=== PATIENT | female | born 1930 | race Caucasian/White ===

== ENCOUNTER → 2016-08-11 | Outpatient (CLI) | payer OTHER ==
--- NOTE | 2016-08-11 19:33 | DX ---
Right Knee 5 Views History: Pain after fall 2 days ago. Comparison: Right knee January 15, 2016. 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 No definite fracture is identified. Alignment is normal. A trace joint effusion is suspected. Impression: No acute osseous findings. If symptoms persist and clinical suspicion warrants, consider MRI.
== END ==
LOC: CIMAGING 10:53
PROVIDERS: ATTEND Internal Medicine
DX: M25.561 Pain in right knee (principal)
CPT/HCPCS: 73564-PO

== ENCOUNTER 2016-08-15 13:37 | Inpatient (IN) | payer OTHER ==
--- NOTE | 2016-08-15 13:49 | CPEKG ---
Heart Rate: 72 RR Interval: 833 P-R Interval: 192 QRSD Interval: 142 QT Interval: 400 QTC Interval: 438 P [place]: 37 QRS [place]: -4 T Wave [place]: -13 EKG Severity - ABNORMAL ECG - EKG Impression: SINUS RHYTHM EKG Impression: RIGHT BUNDLE BRANCH BLOCK Electronically Signed By: Mc High 15-Aug-2016 14:37:34
[2016-08-15] MEDS ORDERED: ASPIRIN 81 MG CHEWABLE TAB ONE (13:50)
[2016-08-15 14:12] LABS: % IMMATURE GRANULYOCYTES 0.5 % (0.0-1.1); ABSOLUTE IMMATURE GRANULOCYTES 0.04 10^3/uL (0.00-0.10); ADD DIFF? NO; ADD MORPH? NO; ADD SCAN? NO; ATYPICAL LYMPHOCYTE FLAG 30 (0-99); FRAGMENT RBC FLAG 0 (0-99); HEMATOCRIT 39.9 % (38.0-47.0); HEMOGLOBIN 13.6 g/dL (12.6-16.3); LEFT SHIFT FLG 0 (0-99); LIPEMIA HEMOLYSIS FLAG 90 (0-99); MEAN CELL HEMOGLOBIN 36.9 pg (27.9-34.1); MEAN CELL HEMOGLOBIN CONCENTR. 34.1 g/dL (32.4-36.7); MEAN CELL VOLUME 108.1 fL (81.5-99.8); MEAN PLATELET VOLUME 9.1 fL (8.7-11.7); PLATELET CLUMPS FLAG 20 (0-99); PLATELET COUNT 245 10^3/uL (150-400); RED BLOOD CELL COUNT 3.69 10^6/uL (4.18-5.33); RED CELL DISTRIBUTION WIDTH 11.3 % (11.5-15.2)
--- NOTE | 2016-08-15 14:23 | UCPHY ---
H & P Patient Type: Established Chief Complaint Nursing Narrative: cp since 9am. fatigue and weak all day. nml appetite. SOb worse w exertion. Time Seen by Provider: 08/15/16 14:11 HPI/ROS: This patient presents with a chief complaint of chest pressure which began this morning. Yesterday she fell fatigue and done well but had no chest pressure. She admits to some shortness of breath but no nausea or diaphoresis. She has had a mild cough. She has chronic low back pain but earlier today had some upper back pain as well. She denies any radiation of the pain to her extremities or neck. There are no palliative or provocative features and pain is not related to movement, breathing or swallowing. She is aware of pain and swelling in her lower extremities which is unchanged since the chest pain began. She has had previous episodes of this in the past and was seen by last repairer but is it is not clear if it was cardiac related related. REVIEW OF SYSTEMS: Constitutional: Malaise, no fever Eyes: No complaints ENT: Denies nasal congestion, sore throat or ear pain Respiratory: Cough, some shortness of breath Cardiac: See above Gastrointestinal: Denies nausea, vomiting, abdominal pain Genitourinary: Denies Musculoskeletal: Chronic back pain unchanged, upper back pain Skin: No rash Neurological: No headache Source: Patient, RN notes reviewed, Old records - Personal History Current Tetanus Diphtheria and Acellular Pertussis (TDAP): Yes - Medical/Surgical History Hx Asthma: No Hx Chronic Respiratory Disease: No Hx Diabetes: No Hx Cardiac Disease: No Hx Renal Disease: No Hx Cirrhosis: No Hx Alcoholism: No Hx HIV/AIDS: No Hx Splenectomy or Spleen Trauma: No Other PMH: thyroid. macular degeneration. hysterectomy - Family History Significant Family History: No pertinent family hx - Social History Smoking Status: Never smoked - Physical Exam Exam: GENERAL: Well-appearing, well-nourished and in no acute distress. HEAD: Atraumatic, normocephalic. EYES: Pupils equal round and reactive to light, extraocular movements intact, sclera anicteric, conjunctiva are normal. ENT: nares patent, oropharynx clear without exudates. Moist mucous membranes. NECK: Normal range of motion, supple without lymphadenopathy or JVD. No tenderness LUNGS: There are diffuse rales present. No wheezes or rhonchi. i. HEART: Regular rate and rhythm without murmurs, rubs or gallops. There is diffuse mild chest wall tenderness ABDOMEN: Soft, diffusely tender, normoactive bowel sounds. No guarding, no rebound. No masses appreciated. EXTREMITIES: Normal range of motion, no pitting or edema. No clubbing or cyanosis. There is diffuse bilateral lower extremity tenderness both anteriorly and posteriorly I NEUROLOGICAL: Cranial nerves II through XII grossly intact. Normal speech, PSYCH: Normal mood, normal affect. SKIN: Warm, dry, normal turgor, no visible rashes or lesions. Back: There is diffuse tenderness of both the upper and lower back. No specific CVA tenderness however. Constitutional: Initial Vital Signs Temperature (C) 36.4 C 08/15/16 13:54 Heart Rate 73 08/15/16 13:54 Respiratory Rate 18 08/15/16 13:54 Blood Pressure 131/69 H 08/15/16 13:54 O2 Sat (%) 96 08/15/16 13:54 O2 Delivery Mode Room Air Allergies/Adverse Reactions: erythromycin base [Erythromycin Base] Allergy (Verified 08/15/16 13:59) Penicillins Allergy (Verified 08/15/16 13:59) Home Medications: Medication Instructions Recorded Levothyroxine [Synthroid 100 mcg 100 mcg PO BONILLA@06 01/07/16 (*)] Eye Drops Dispenser 08/15/16 Medical Decision Making - Diagnostics EKG Interpretation: An EKG shows a right bundle branch block and is essentially unchanged from an EKG obtained in January of 2016. Imaging: The chest x-ray is unchanged from 1 obtained nearly 4 years ago. There is mild cardiomegaly but no obvious congestive heart failure. ED Course/Re-evaluation: The patient was monitored throughout her stay in the department. She remained stable and in good condition and unchanged. Because of the unclear source of this patient's pain is been elected to admit her. The hospitalist has been contacted and has agreed to take the patient in transfer. Differential Diagnosis: Because I have no specific diagnosis for this patient I feel that she requires admission for further evaluation and testing. I think it is highly unlikely that she has pulmonary embolus, pneumonia or congestive heart failure but my chief concern is that this represents coronary artery syndrome. There is no evidence of aortic dissection. - Data Points Laboratory Results: Laboratory Results 08/15/16 14:07 08/15/16 13:55 08/15/16 08/15/16 14:07 13:55 WBC 8.24 10^3/uL (3.80-9.50) RBC 3.69 L 10^6/uL (4.18-5.33) Hgb 13.6 g/dL (12.6-16.3) Hct 39.9 % (38.0-47.0) MCV 108.1 H fL (81.5-99.8) MCH 36.9 H pg (27.9-34.1) MCHC 34.1 g/dL (32.4-36.7) RDW 11.3 L % (11.5-15.2) Plt Count 245 10^3/uL (150-400) MPV 9.1 fL (8.7-11.7) Neut % (Auto) 66.7 % (39.3-74.2) Lymph % (Auto) 18.4 % (15.0-45.0) [place] % (Auto) 9.2 % (4.5-13.0) Eos % (Auto) 4.2 % (0.6-7.6) Baso % (Auto) 1.0 % (0.3-1.7) Nucleat RBC Rel Count 0.0 % (0.0-0.2) Absolute Neuts (auto) 5.49 10^3/uL (1.70-6.50) Absolute Lymphs (auto) 1.52 10^3/uL (1.00-3.00) Absolute Monos (auto) 0.76 10^3/uL (0.30-0.80) Absolute Eos (auto) 0.35 10^3/uL (0.03-0.40) Absolute Basos (auto) 0.08 10^3/uL (0.02-0.10) Absolute Nucleated RBC 0.00 10^3/uL (0-0.01) Immature Gran % 0.5 % (0.0-1.1) Immature Gran # 0.04 10^3/uL (0.00-0.10) Sodium 135 mEq/L (134-144) Potassium 4.3 mEq/L (3.5-5.2) Chloride 99 mEq/L (97-110) Carbon Dioxide 27 mEq/l (22-31) Anion Gap 9 mEq/L (8-16) BUN 21 mg/dL (7-23) Creatinine 0.8 mg/dL (0.6-1.0) Estimated GFR > 60 Glucose 132 H mg/dL (70-100) Calcium 8.9 mg/dL (8.5-10.4) Total Bilirubin 0.4 mg/dL (0.1-1.4) AST 19 IU/L (14-46) ALT 22 IU/L (9-52) Alkaline Phosphatase 66 IU/L (38-126) Troponin I < 0.012 ng/mL (0-0.034) Total Protein 6.7 g/dL (6.3-8.2) Albumin 3.6 g/dL (3.5-5.0) Departure - Departure Disposition: [facility] Inpatient Acute Clinical Impression: Chest pain Qualifiers: Chest pain type: precordial pain Qualifier Code: (R07.2) Precordial pain Condition: Good Referrals: Cameron Mcarthur MD [Primary Care Provider] - As per Instructions - PQRS PQRS Measurement: Not applicable
[2016-08-15 14:28] LABS: ALANINE AMINOTRANSFERASE 22 IU/L (9-52); ALBUMIN 3.6 g/dL (3.5-5.0); ALKALINE PHOSPHATASE 66 IU/L (38-126); ANION GAP 9 mEq/L (8-16); ASPARTATE AMINOTRANSFERASE 19 IU/L (14-46); BILIRUBIN,TOTAL 0.4 mg/dL (0.1-1.4); CALCIUM 8.9 mg/dL (8.5-10.4); CARBON DIOXIDE 27 mEq/l (22-31); CHLORIDE 99 mEq/L (97-110); CREATININE 0.8 mg/dL (0.6-1.0); GLOMERULAR FILTRATION RATE > 60; GLUCOSE 132 mg/dL (70-100); POTASSIUM 4.3 mEq/L (3.5-5.2); SODIUM 135 mEq/L (134-144); TOTAL PROTEIN 6.7 g/dL (6.3-8.2)
[2016-08-15 14:36] LABS: TROPONIN I < 0.012 ng/mL (0-0.034)
--- NOTE | 2016-08-15 14:45 | DX ---
PA and lateral chest - August 15, 2016 History: Chest pain. Comparison: PA and lateral chest January 08, 2013. Findings: Diffuse interstitial prominence, most noticeable in the lateral right upper lobe and left l claudia base has not appreciably changed since 2012. There is no definite focal consolidation. There is n o pneumothorax or pleural effusion. Heart size is mildly enlarged, unchanged. The bones are stable. Impression: Stable interstitial prominence likely related to interstitial lung disease with no acute findings.
[2016-08-15] MEDS ORDERED: ONDANSETRON DISINTEGRATING 4 MG TAB PO PRN (18:42)
[2016-08-15] MEDS ORDERED: ACETAMINOPHEN 325 MG TAB PO PRN (18:42)
--- NOTE | 2016-08-15 22:56 | PDEACUHP ---
History and Physical - Chief Complaint chest pain - History of Present Illness 85 yo F with PMH of hypothyroidism presenting with weakness and chest pain. She notes that she feels weak with any exertion, which is a change from her usual baseline. She has also had chest discomfort across her anterior chest. She states the pain is dull and not severe, but is new and not like anything she has had before. She has felt so weak, that with even minimal exertion she will need to sit down. This has gone on for about 1 week on and off. Other than exertion, she does not associate it with anything else. She has no swelling or pain in her legs, she has no cough, no fever or chills, no shortness of breath. History Information - Allergies/Home Medication List Allergies/Adverse Reactions: erythromycin base [Erythromycin Base] Allergy (Verified 08/15/16 19:26) Penicillins Allergy (Verified 08/15/16 19:26) Home Medications: Albuterol Hfa Anes Only [Proair Hfa Icu (*)] 1 puffs IH BID 08/15/16 [Last Taken 08/14/16] Brimonidine 0.15% [ALPHAGAN P 0.15% (RX)] 1 drops EACHEYE BID 08/15/16 [Last Taken 08/15/16] Levothyroxine [Synthroid 25 mcg (*)] 100 mcg PO BONILLA 08/15/16 [Last Taken 08/14/16 ] Levothyroxine [Synthroid 75 mcg (*)] 75 mcg PO MOTUWETHFRSA 08/15/16 [Last Taken 08/15/16] Timolol 0.5% [TIMOPTIC 0.5% (*)] 1 drops RTEYE BID 08/15/16 [Last Taken 08/15/16 ] I have personally reviewed and updated: family history, medical history, social history, surgical history - Past Medical History Additional medical history: hypothyroidism. macular degeneration. varicose veins - Surgical History Reports: no pertinent surgical hx - Family History Positive for: non-pertinent - Social History Smoking Status: Never smoked Alcohol Use: None Drug Use: None Additional social history: , 3 children Review of Systems ROS: 10pt was reviewed & negative except for what was stated in HPI & below Physical Exam Temp Pulse Resp BP Pulse Ox 36.3 C 68 22 H 114/57 L 93 08/15/16 19:57 01/23/17 19:57 08/15/16 19:57 08/15/16 19:57 08/15/16 19:57 Constitutional: no apparent distress, appears nourished Eyes: PERRL Ears, Nose, Mouth, Throat: moist mucous membranes Cardiovascular: regular rate and rhythym, no murmur, rub, or gallop, No edema Respiratory: no respiratory distress, no rales or rhonchi Gastrointestinal: normoactive bowel sounds, soft, non-tender abdomen Genitourinary: no bladder fullness Skin: warm, normal color Musculoskeletal: full muscle strength, no muscle tenderness Neurologic: AAOx3, sensation intact bilaterally Psychiatric: interacting appropriately, not anxious, not encephalopathic Lab Data & Imaging Review 08/15/16 14:07 08/15/16 13:55 WBC 8.24 10^3/uL (3.80-9.50) 08/15/16 14:07 RBC 3.69 10^6/uL (4.18-5.33) L 08/15/16 14:07 Hgb 13.6 g/dL (12.6-16.3) 08/15/16 14:07 Hct 39.9 % (38.0-47.0) 08/15/16 14:07 MCV 108.1 fL (81.5-99.8) H 08/15/16 14:07 MCH 36.9 pg (27.9-34.1) H 08/15/16 14:07 MCHC 34.1 g/dL (32.4-36.7) 08/15/16 14:07 RDW 11.3 % (11.5-15.2) L 08/15/16 14:07 Plt Count 245 10^3/uL (150-400) 08/15/16 14:07 MPV 9.1 fL (8.7-11.7) 08/15/16 14:07 Neut % (Auto) 66.7 % (39.3-74.2) 08/15/16 14:07 Lymph % (Auto) 18.4 % (15.0-45.0) 08/15/16 14:07 [place] % (Auto) 9.2 % (4.5-13.0) 08/15/16 14:07 Eos % (Auto) 4.2 % (0.6-7.6) 08/15/16 14:07 Baso % (Auto) 1.0 % (0.3-1.7) 08/15/16 14:07 Nucleat RBC Rel Count 0.0 % (0.0-0.2) 08/15/16 14:07 Absolute Neuts (auto) 5.49 10^3/uL (1.70-6.50) 08/15/16 14:07 Absolute Lymphs (auto) 1.52 10^3/uL (1.00-3.00) 08/15/16 14:07 Absolute Monos (auto) 0.76 10^3/uL (0.30-0.80) 08/15/16 14:07 Absolute Eos (auto) 0.35 10^3/uL (0.03-0.40) 08/15/16 14:07 Absolute Basos (auto) 0.08 10^3/uL (0.02-0.10) 08/15/16 14:07 Absolute Nucleated RBC 0.00 10^3/uL (0-0.01) 08/15/16 14:07 Immature Gran % 0.5 % (0.0-1.1) 08/15/16 14:07 Immature Gran # 0.04 10^3/uL (0.00-0.10) 08/15/16 14:07 Sodium 135 mEq/L (134-144) 08/15/16 13:55 Potassium 4.3 mEq/L (3.5-5.2) 08/15/16 13:55 Chloride 99 mEq/L (97-110) 08/15/16 13:55 Carbon Dioxide 27 mEq/l (22-31) 08/15/16 13:55 Anion Gap 9 mEq/L (8-16) 08/15/16 13:55 BUN 21 mg/dL (7-23) 08/15/16 13:55 Creatinine 0.8 mg/dL (0.6-1.0) 08/15/16 13:55 Estimated GFR > 60 08/15/16 13:55 Glucose 132 mg/dL (70-100) H 08/15/16 13:55 Calcium 8.9 mg/dL (8.5-10.4) 01/23/17 13:55 Total Bilirubin 0.4 mg/dL (0.1-1.4) 08/15/16 13:55 AST 19 IU/L (14-46) 08/15/16 13:55 ALT 22 IU/L (9-52) 08/15/16 13:55 Alkaline Phosphatase 66 IU/L (38-126) 08/15/16 13:55 Troponin I < 0.012 ng/mL (0-0.034) 08/15/16 13:55 Total Protein 6.7 g/dL (6.3-8.2) 08/15/16 13:55 Albumin 3.6 g/dL (3.5-5.0) 08/15/16 13:55 Visualized and Interpreted Chest x-ray results: Yes Chest X-Ray results: no infiltrate Visualized and Interpreted EKG results: Yes EKG Interpretation: Positive for: normal sinsus rhythm, right bundle branch block Assessment & Plan Assessment: 85 yo F with no significant PMH presenting with fatigue with exertion and chest pain # chest pain: concerning in that it is exertional and associated with fatigue on exertion. Initial w/u non diagnostic, ECG with old RBBB and no acute ischemic changes. Will monitor on tele, trend troponins and obtain stress test in am. # exertional weakness: as above, concerning for cardiac etiology, will also check tsh # macrocytosis: has been present quite some time, again checking tsh, b12 has been wnl in the recent past, not a drinker per her report. Unclear if this could be related to her presenting issus given how long it has been present and that otherwise laboratory studies relatively normal # hypothyroid: checking tsh in am # dispo: observation status Patient new to my care. Old records reviewed and summarized as above. Care plan reviewed with ER doctor including plans for ACS rule out.
[2016-08-16] MEDS: TIMOLOL 0.5% 15 ML OPHT.BTL RTEYE SCH ×3 (00:26→21:19)
[2016-08-16 03:58] LABS: CHOLESTEROL 181 mg/dL (140-220); CHOLESTEROL/HDL RATIO 4.41 RATIO (1.00-4.44); HIGH DENSITY LIPOPROTEIN 41 mg/dL (40-85); LDL/HDL RATIO 2.39 RATIO (1.00-3.22); LOW DENSITY LIPOPROTEIN 98 mg/dL (80-100); NON-HIGH DENSITY LIPOPROTEIN 140 mg/dL (90-129); TRIGLYCERIDE 214 mg/dL (35-135); VERY LOW DENSITY LIPOPROTEINS 42 mg/dL (8-25)
[2016-08-16 04:10] LABS: TROPONIN I < 0.012 ng/mL (0-0.034)
[2016-08-16] MEDS: LEVOTHYROXINE 75 MCG TAB PO SCH (08:02)
[2016-08-16] MEDS: ALBUTEROL 60 PUFFS/8 GM MDI IH SCH ×2 (08:14→21:26)
[2016-08-16] MEDS: ASPIRIN 325 MG TAB PO SCH (09:00)
[2016-08-16] MEDS: BRIMONIDINE 0.15% 5 ML OPHT.BTL EACHEYE SCH ×2 (11:10→21:20)
[2016-08-16] MEDS ORDERED: REGADENOSON 0.4 MG/5 ML SYR IVP ONE (12:09)
--- NOTE | 2016-08-16 13:04 | CPR ---
[f rep st] NONINVASIVE CARDIAC PROCEDURE REPORT Lexiscan injection of Lexiscan MPI study. INDICATION FOR PROCEDURE: Chest pressure, abnormal EKG with right bundle branch block. PRE: After obtaining informed consent, ensuring the patient's n.p.o. status of caffeine for greater than 12 hours, the patient was placed on electrocardiogram. Initial EKG showed sinus rhythm with rig ht bundle branch block. Patient denies any chest pain, or shortness of breath, or symptoms suggestin g ischemia. Initial blood pressure 110/60, saturation 92% on room air. INJECTION: Patient was given Lexiscan slow IV push followed by nuclear isotope. Within 1-2 minutes, patient reporting some shortness of breath with injection, no significant EKG changes, the patient w as given caffeinated beverage. Within 5 minutes, patient reports symptoms all subsided. Blood press ure remained stable, again no change in electrocardiogram, heart rate 84 beats per minute. Saturatio n 92% on room air. Patient's vital signs are stable. She will finish post stress MPI imaging in [facility] at this time. IMPRESSION: An 85-year-old female, admitted to the hospital for chest pressure, with noted right bun dle branch block, undergoing Lexiscan MPI to evaluate for cardiac ischemia, reporting mild shortness of breath, with some flushing sensation within injection 1 minute, and all symptoms subsided with caf feine in time, asymptomatic after 5 minutes, vital signs stable, no significant EKG changes with Shantal scan injection. /[id number]/MODL
--- NOTE | 2016-08-16 13:35 | NM ---
Nuclear Medicine Myocardial Perfusion Stress and Rest Imaging With Lexiscan History: Chest pain. Right bundle branch block. Comparison Studies: Chest x-ray from yesterday Technique: Rest imaging performed with intravenous administration of 13.9 mCi of technetium 99m labe led sestamibi. Stress imaging performed with the intravenous administration of 26.8 mCi of technetium 99m sestamibi labeled with the administration of 0.4 mg of Lexiscan. Findings: Normal left ventricular ejection fraction of 83%. Stress and rest imaging demonstrates smal l defect involving the lateral wall near the base on the stress images, which appears worse on stress than rest, suggesting ischemia. No definite old infarcts.. No focal wall motion abnormalities. Impression: 1. Normal left ventricular ejection fraction of 83%. 2. No focal wall motion abnormalities. 3. Suspect myocardial ischemia of the lateral wall of the left ventricle near the base. Findings and recommendations discussed with Dr. David Bowles at 1330 hours today. Cosigned: Dr. Mark Gallagher.
[2016-08-16] MEDS ORDERED: TEMAZEPAM 15 MG CAP PO PRN (15:11)
--- NOTE | 2016-08-16 15:37 | HOSPPROG ---
Hospitalist Progress Note Assessment/Plan: DIAGNOSIS: # new onset exertional angina # Abnormal myocardial perfusion imaging associated with Lexiscan stress test, left lateral wall reversible ischemia suggested # Ruled out myocardial infarction, no sign of heart failure or arrhythmia so far PLANS: - I have reviewed her case in detail with Carlos Kaufman and Yonas Thorpe of cardiology -The plan will be to recommend coronary angiography which the patient is agreeing with at this time after my discussion with her. We will schedule this for tomorrow morning -Continue observation on cardiac exercise physiologist here until then which will require changed to inpatient status SUBJECTIVE: no recurrent angina so far here in hospital, no shortness of breath, no fevers OBJECTIVE Vitals reviewed: stable without fever hoop coiler: My review shows sinus rhythm without significant arrhythmia or ectopy Exam: alert oriented skin warm dry color ok resps not labored lungs clear BSs heart regular abd soft nondistended nontender, bowel sounds present limbs warm, no edema iv site ok Lexiscan stress test with myocardial perfusion imaging, my personal review and interpretation images: There is some reversible ischemia in the lateral wall. I have reviewed this with Dr. Hameed from Radiology. The ejection fraction is estimated in the 80s by Dr. Hameed. He does agree with the lateral ischemia. Laboratory data troponins all negative Objective: Vital Signs Temp Pulse Resp BP Pulse Ox 36.4 C 74 19 141/83 H 96 08/16/16 08:30 08/16/16 08:30 08/16/16 08:30 08/16/16 08:30 08/16/16 08:30 ICD10 Worksheet Patient Problems: Problems Problem Status Diagnosed Chest pain Acute Diarrhea Acute Diverticulitis Acute Dizziness Acute
[2016-08-16] MEDS ORDERED: ENOXAPARIN 80 MG/0.8 ML SYR SC ONE (16:00)
[2016-08-16] MEDS: METOPROLOL TARTRATE 25 MG TAB PO SCH (21:18)
--- NOTE | 2016-08-17 03:05 | GCON ---
[f rep st] CONSULTATION CARDIOLOGY CONSULTATION SUPERVISING WEB SERVICES DEVELOPER: Dr. Claribel Ross. INDICATION FOR CARDIAC CONSULTATION: Episode of chest pressure with shortness of breath, abnormal MP I study. HISTORY OF PRESENT ILLNESS: The patient is an 85-year-old female, who reports that she is active, ex ercising 2-3 times a week. She reports over the last 3 weeks, she has been noticing significantly mo re fatigue, reporting that she has been sleeping longer. She has also noticed episodes of shortness of breath. The worst part was yesterday, when she was out with her niece, she reported after walking 100 feet, she would develop significant shortness of breath, where she would have to find a seat and sit down and rest. She reported along with the shortness of breath, she did develop a midsternal ch est pressure, reporting no radiation, denies any nausea or diaphoresis with pressure, reporting sympt oms usually lasted for between 5 and 15 minutes, and then dissipated. She reports prior to this, she had been in her normal health, denies of any recent history of fevers, chills, or night sweats. No history of any vascular disease. With her symptoms worsening in front of her nieces, she was encoura ged to come to the hospital or go to urgent care for evaluation. Upon arrival, she was found to be i n sinus rhythm with right bundle branch block, but due to her age and her story, she was sent over to [facility] EAC unit for further evaluation. Upon arrival, troponin levels drawn, whic h have been negative. She did undergo myocardial perfusion imaging stress test today, which did show normal LVEF of 83% with no focal wall motion abnormalities, but there was suspected myocardial ische david in the lateral wall of the left ventricle near the base. She reports she has had no further epis odes of chest pain or shortness of breath since admission, but she has not been exerting herself. Sh reinaldo had seen Cardiology in the past, Dr. Kim in 2012. Reviewing previous records, she did have a pr evious stress test in April 2013, MPI study, which showed no signs of ischemia or infarction. She does report longstanding history of mild peripheral edema, that worsens as the day goes by, but impro ves as she keeps her legs up. She denies of any orthopnea, PND, edema, near-syncope, or syncopal esther nts. Denies of any palpitations. Denies of any symptoms suggestive of TIA or CVA. She has significant cardiac risk factors that include age, dyslipidemia, and family history of barba ry artery disease with father dying of PR at 78, mother dying of an PR at 82. PAST MEDICAL HISTORY: 1. Macular degeneration. 2. Gastroesophageal reflux disease. 3. Spinal stenosis. 4. Hypothyroidism. 5. Varicose veins. PREVIOUS SURGICAL HISTORY: 1. Cataract surgery. 2. Hysterectomy. 3. Tonsillectomy. FAMILY HISTORY: Patient reports father at age 78 of an PR, brother at age 82 of an PR, mot her at age 48 of cancer. SOCIAL HISTORY: Patient is a . She lives in [facility]. She participates in [employer] 2 times a week. She denies ever smoking, but has been exposed to secondhand smoke m ost of her life. She has 3 sons, oldest one with diabetes, but all healthy. She denies of any alcoh ol use. Denies of any history of smoking. Denies of any illicit drug use. ALLERGIES: Patient is allergic to erythromycin and penicillin. HOME MEDICATIONS: Include Alphagan 0.1% one drop each eye b.i.d., albuterol 1 puff inhaled b.i.d., T imolol 0.5% one drop right eye b.i.d., Synthroid 100 mcg p.o. Monday, Synthroid 75 mcg p.o. Monday, T , Monday, , Monday, Monday. REVIEW OF SYSTEMS: A 10-point review of systems done on this patient all negative except as mentione d above. PHYSICAL EXAMINATION: GENERAL APPEARANCE: Medium built, mildly overweight, elderly female . She is alert, oriented to person, place, time, and situation. Appears to be under no acute distre ss. VITAL SIGNS: Current blood pressure was 141/83, heart rate is 74, sinus rhythm on the monitor, respirations are 19, saturating 96% on room air, temperature 36.4 degrees Celsius. HEENT: Head is n ormocephalic. Lips and tongue are pink and moist with no signs of cyanosis, conjunctivae pink. NECK : Trachea is midline, +2 carotid pulses bilateral, no auscultated bruits or jugular vein distention. RESPIRATORY: Lungs clear to auscultation, no rhonchi, rales or wheezes. No accessory muscle use, no intercostal muscle retraction noted. CARDIAC: Regular rate, regular rhythm, S1, S2, 1/6 systolic murmur noted along the left sternal border. ABDOMEN: Soft, nontender, bowel sounds x4 quadrants, n o organomegaly, no palpable masses. SKIN: [place], warm, dry, no cyanosis, no clubbing, trace to +1 pe ripheral edema bilateral lower extremities to the ankles. VASCULAR: +2 carotids bilateral, +2 radia ls bilateral, +1 posterior tibial and dorsal pedal pulses bilateral. NEURO: Cranial nerves 2-12 jeanine ssly intact. LABORATORY STUDIES: On admission, WBC 8.24, hemoglobin 13.6, hematocrit 39.9. Sodium 135, potassium 4.3, chloride 99, CO2 27, BUN 21, creatinine 0.8, glucose 132, calcium 8.9, total bilirubin 0.4, AST 19, ALT 22, alkaline phosphate 66. The patient has had troponin drawn x3, which have all been less than 0.012. Total protein 6.7, albumin 3.6. Today's fasting lipid panel showed triglycerides of 214 , total cholesterol 181, LDL 98, HDL 41. TSH this morning was 6.450. STUDIES: Electrocardiogram done on admission shows sinus rhythm with right bundle branch block. Carlotta st x-ray shows mild interstitial disease, but no acute cardiopulmonary process. MPI study as mention ed above. ASSESSMENT AND PLAN: Chest pain and pressure: An 85-year-old female reporting ongoing, what appears to be exertional angina starting for the last few weeks, worsening episode yesterday, negative tropo nins, abnormal MPI study showing possible cardiac ischemia in the lateral wall with no wall motion ab normality on myocardial perfusion imaging. Electrocardiogram showing right bundle branch block with no acute ST or T-wave abnormalities. At thi s time, after discussing with Dr. Ross and Dr. Thorpe, it was decided that due to her symptoms, abnor mal stress test, and multiple cardiac risk factors, it would be best to evaluate patient further for possible cardiac ischemia, with coronary angiogram. Risks and benefits of this procedure were explai bryant to the patient, and I also spoke to her [id number] over the phone, they verbalized understan ding and are wanting her to proceed. Currently patient has been chest pain-free since hospitalizatio n. She has been started on aspirin therapy, will also start her on low-dose beta donna tonight of metoprolol tartrate at 12.5 mg p.o. b.i.d. Since she has not eaten, will plan on giving her a single dose of Lovenox at 1 mg/kg. She will be made n.p.o. after night. If she does start experiencing sy mptoms of chest pressure, or have any abnormal electrocardiogram, then consideration moving cardiac c atheterization into more of an urgent status. Dyslipidemia: The patient's triglycerides are elevated at 214, but total cholesterol was 181, LDL 98 , HDL 41. Pending on results of cardiac catheterization, may consider starting her on statin therapy to get LDL less than 70%. Hypothyroidism: Patient noted to have mildly elevated TSH, she is on her Synthroid home dosage. She is being followed by the hospital services. More recommendations will come post cardiac catheterization. Thank you for this consultation. We will be glad to follow along with you. /[id number]/MODL
[2016-08-17] MEDS: LEVOTHYROXINE 75 MCG TAB PO SCH (05:29)
[2016-08-17 05:30] LABS: INR 0.99 (0.83-1.16)
[2016-08-17 05:41] LABS: ANION GAP 8 mEq/L (8-16); CALCIUM 9.2 mg/dL (8.5-10.4); CARBON DIOXIDE 26 mEq/l (22-31); CHLORIDE 106 mEq/L (97-110); CREATININE 0.7 mg/dL (0.6-1.0); GLOMERULAR FILTRATION RATE > 60; GLUCOSE 96 mg/dL (70-100); MAGNESIUM 2.2 mg/dL (1.6-2.3); POTASSIUM 4.3 mEq/L (3.5-5.2); SODIUM 140 mEq/L (134-144)
[2016-08-17] MEDS ORDERED: NS 1,000 ML IV ONE (06:00)
[2016-08-17] MEDS ORDERED: NITROGLYCERIN 0.4 MG BTL SL PRN (06:00)
[2016-08-17] MEDS ORDERED: diphenhydrAMINE 25 MG CAP PO ONE (09:00)
[2016-08-17] MEDS ORDERED: DIAZEPAM 5 MG TAB PO ONE (09:00)
[2016-08-17] MEDS: ALBUTEROL 60 PUFFS/8 GM MDI IH SCH ×2 (09:07→20:04)
--- NOTE | 2016-08-17 09:20 | CPEKG ---
Heart Rate: 71 RR Interval: 845 P-R Interval: 180 QRSD Interval: 142 QT Interval: 408 QTC Interval: 444 P Anna: 44 QRS Anna: 25 T Wave Anna: -20 EKG Severity - ABNORMAL ECG - EKG Impression: SINUS RHYTHM EKG Impression: RIGHT BUNDLE BRANCH BLOCK Electronically Signed By: Lew Álvarez 18-Aug-2016 19:28:57
[2016-08-17] MEDS: TIMOLOL 0.5% 15 ML OPHT.BTL RTEYE SCH ×2 (09:40→20:46)
[2016-08-17] MEDS: ASPIRIN 325 MG TAB PO SCH (09:40)
[2016-08-17] MEDS: METOPROLOL TARTRATE 25 MG TAB PO SCH ×2 (09:41→20:30)
[2016-08-17] MEDS: BRIMONIDINE 0.15% 5 ML OPHT.BTL EACHEYE SCH ×2 (10:01→20:46)
[2016-08-17] MEDS ORDERED: FAMOTIDINE 20 MG TAB ONE (10:26)
[2016-08-17] MEDS ORDERED: FAMOTIDINE 20 MG TAB PO ONE (11:00)
[2016-08-17] MEDS ORDERED: fentaNYL 100 MCG/2 ML INJ ONE (12:25)
[2016-08-17] MEDS ORDERED: LIDOCAINE 1% 30 ML SDV ONE (12:25)
[2016-08-17] MEDS ORDERED: MIDAZOLAM 2 MG/2 ML VIAL ONE (12:26)
[2016-08-17] MEDS ORDERED: IOPAMIDOL (ISOVUE-370) 150 ML BTL IV ONE ×2 (12:26→13:30)
[2016-08-17] MEDS ORDERED: HEPARIN 10,000 UNIT/10 ML MDV ONE (13:41)
[2016-08-17] MEDS ORDERED: BIVALIRUDIN 250 MG/5 ML VIAL IV ONE (13:52)
--- NOTE | 2016-08-17 13:53 | PDDXCAT ---
Diagnostic Cath Note - . 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 50% mid vessel stenosis LCX: one large OM. no sig dz RCA: dominant. No sig disease EDP: 21 LVEF: 70% Wall motion: normal Complications: none Estimated blood loss: <50ml Closure method: Angioseal Assessment: moderate LAD disease. Normal Ao/LV pressure without . Mildly dilated ascending aorta Plan: Patient with concerning symptoms and abnormal nuclear stress test. FFR of LM and LAD with Dr. Thorpe Patient Problems: Problems Problem Status Diagnosed Chest pain Acute Diarrhea Acute Diverticulitis Acute Dizziness Acute
--- NOTE | 2016-08-17 14:57 | CPIP ---
[f rep st] INVASIVE CARDIAC PROCEDURE DATE OF PROCEDURE: 08/17/2016 PROCEDURE: 1. Coronary angiography. 2. Intravascular ultrasound of the left anterior descending coronary artery and left main coronary a rtery. INDICATION: The patient was admitted with crescendo anginal type symptoms. She had a stress test pe rformed suggesting lateral ischemia. Coronary angiography was notable for intermediate grade lesion involving the mid left anterior descending coronary artery, as well as a 40% to 50% stenosis of the l eft main coronary artery versus flexure. I was consulted to perform intravascular ultrasound of thes e 2 lesions, to further clarify the patient's condition. CORONARY ANGIOGRAPHY: A 6-Italian EBU 3.5 was advanced to the left main coronary artery and images ob tained. The left main coronary artery bifurcated into an LAD and circumflex coronary arteries. In t he mid left anterior descending coronary artery just after the takeoff of the septal perforators, the re appeared to be an intermediate grade stenosis that was approximately 40% to 50% in severity, but c ould be a napkin ring-type lesion. In addition, the patient was also noted to have a 40% to 50% sten osis of the left main coronary artery versus flexure, intravascular ultrasound of the left main coron tavon artery and left anterior descending coronary artery. A Luge wire was placed in the distal left a nterior descending coronary artery and position verified by angiography. Intravascular ultrasound pr obe was advanced and images obtained. Intravascular ultrasound demonstrated a 43% narrowing in the m id left anterior descending coronary artery. In the left main coronary artery, there is mild plaque burden, with no significant stenosis. It is felt that this likely represented a flexure. COMPLICATIONS: None. CONCLUSIONS: 1. Mild to moderate coronary artery disease without flow limitation. 2. Plan is for medical management. /[id number]/MODL
--- NOTE | 2016-08-17 17:09 | PDDCSUM ---
Discharge Summary Discharge Summary: DISCHARGE SUMMARY NOTE DISCHARGE DIAGNOSES: # chest pain of uncertain etiology, resolved; ? If possibly due to vasospasm # nonobstructive coronary artery disease CONSULTANTS: Dr. Claribel Ross PROCEDURES: Lexiscan stress test with myocardial perfusion imaging Coronary angiography and intravascular ultrasound: 43 % stenosis is the most significant plaque identified, nonobstructive coronary artery disease HOSPITAL COURSE SUMMARY: Amber is an 85-year-old woman who comes in to the hospital with exertional chest discomfort that sounds anginal. She underwent evaluation which ruled out myocardial infarction, and she had no evidence of heart failure or arrhythmia. Lexiscan stress testing however included myocardial perfusion imaging that suggested a reversible ischemic defect in the left lateral of wall of left ventricle. The patient therefore underwent coronary angiography which showed some abnormalities of flow and lumen diameter in the left main and LAD. The suggestion was approximately 50% stenosis by angiographic appearance however there appeared to be some flush. Therefore ultrasound was done intravascularly and showed that the left main change was actually tortuosity and the LAD lesion was at 43%. Ejection fraction was in the 70s without wall motion abnormalities. The patient was felt stable for discharge to home. However but the possibility that this syndrome could potentially be due to vasospasm the patient is given a prescription for Norvasc which may be useful as well as she did have some mildly elevated blood pressures here. She is in stable condition eating well or walking the hallways well there been no complications MEDICATION CHANGES: Addition of Lipitor 20 mg daily Addition of Norvasc 5 mg daily FOLLOW-UP PLAN: Follow up at [facility] in 2-3 weeks Greater than 35 minutes bedside and care coordination time today
[2016-08-17] MEDS: ATORVASTATIN CALCIUM 20 MG TAB PO SCH (17:38)
[2016-08-18 04:05] VITALS: RESP 20
[2016-08-18] MEDS: LEVOTHYROXINE 75 MCG TAB PO SCH ×2 (06:11→08:08)
[2016-08-18 07:36] VITALS: BP 140/67; TEMP 97.6
[2016-08-18] MEDS: ATORVASTATIN CALCIUM 20 MG TAB PO SCH (08:08)
[2016-08-18] MEDS: ASPIRIN 325 MG TAB PO SCH (08:08)
[2016-08-18] MEDS: METOPROLOL TARTRATE 25 MG TAB PO SCH (08:09)
[2016-08-18] MEDS: ALBUTEROL 60 PUFFS/8 GM MDI IH SCH (09:17)
[2016-08-18 09:21] VITALS: PULSE 76; O2SAT 94
--- NOTE | 2016-08-18 09:32 | PDDCSUM ---
Discharge Summary Discharge Summary: DISCHARGE DIAGNOSES: # chest pain of uncertain etiology, resolved; ? If possibly due to vasospasm # nonobstructive coronary artery disease CONSULTANTS: Dr. Claribel Ross PROCEDURES: Lexiscan stress test with myocardial perfusion imaging Coronary angiography and intravascular ultrasound: 43 % stenosis is the most significant plaque identified, nonobstructive coronary artery disease HOSPITAL COURSE SUMMARY: Amber is an 85-year-old woman who comes in to the hospital with exertional chest discomfort that sounds anginal. She underwent evaluation which ruled out myocardial infarction, and she had no evidence of heart failure or arrhythmia. Lexiscan stress testing however included myocardial perfusion imaging that suggested a reversible ischemic defect in the left lateral of wall of left ventricle. The patient therefore underwent coronary angiography which showed some abnormalities of flow and lumen diameter in the left main and LAD. The suggestion was approximately 50% stenosis by angiographic appearance however there appeared to be some flush. Therefore ultrasound was done intravascularly and showed that the left main change was actually tortuosity and the LAD lesion was at 43%. Ejection fraction was in the 70s without wall motion abnormalities. We The considered the possibility that this syndrome could potentially be due to vasospasm. Therefore the patient is given a prescription for Norvasc which may be useful as well as she did have some mildly elevated blood pressures here. The patient was felt stable for discharge to home. However, after the sedation for her angiography she was 2 wobbly on her feet to be safe on the evening of August 17. Therefore she was observed overnight here and this morning she is now doing much better with her balance instability and safe for her to go home. She will therefore be discharged home. She is in stable condition eating well or walking the hallways well there been no complications MEDICATION CHANGES: Addition of Lipitor 20 mg daily Addition of Norvasc 5 mg daily FOLLOW-UP PLAN: Follow up at [facility] in 2-3 weeks Greater than 35 minutes bedside and care coordination time today
[2016-08-18] MEDS: TIMOLOL 0.5% 15 ML OPHT.BTL RTEYE SCH (10:07)
[2016-08-18] MEDS: BRIMONIDINE 0.15% 5 ML OPHT.BTL EACHEYE SCH (10:07)
[2016-08-21] MEDS ORDERED: LEVOTHYROXINE 100 MCG TAB PO SCH (06:00)
== END 2016-08-18 11:33 | disposition home or self-care (01) | DRG 287 ==
LOC: CED 13:37 → CEDHOLD 14:59 → INTOOBSV 14:59 → F1N 18:07 → OBSVTOIN 08-16 15:49
PROVIDERS: ADMIT Internal Medicine; ATTEND Internal Medicine
PROC: 4A023N7 Measurement of Cardiac Sampling and Pressure, Left Heart, Percutaneous Approach (ICD-10-PCS; principal; 2016-08-17)
PROC: B2151ZZ Fluoroscopy of Left Heart using Low Osmolar Contrast (ICD-10-PCS; principal; 2016-08-17)
PROC: B2111ZZ Fluoroscopy of Multiple Coronary Arteries using Low Osmolar Contrast (ICD-10-PCS; principal; 2016-08-17)
DX: R07.9 Chest pain, unspecified (principal); I25.10 Atherosclerotic heart disease of native coronary artery without angina pectoris; E03.9 Hypothyroidism, unspecified; H35.30 Unspecified macular degeneration; K21.9 Gastro-esophageal reflux disease without esophagitis; E78.5 Hyperlipidemia, unspecified; Z88.0 Allergy status to penicillin
CPT/HCPCS: 71020-PO; 80053-PO; 84484-PO; 85025-PO; A9500; C1753; C1760; C1769; C1887; G0378; G0463-PO; J0583; J1644; J1650; J2250; J2785; J3010; Q9967

== ENCOUNTER → 2016-12-27 | Outpatient (CLI) | payer OTHER | LOC: CIMAGING 13:23 | PROVIDERS: ATTEND Internal Medicine | DX: S62.634A Displaced fracture of distal phalanx of right ring finger, initial encounter for closed fracture (principal) | CPT/HCPCS: 73140-PO ==

== ENCOUNTER → 2016-12-30 | Outpatient (CLI) | payer OTHER | LOC: CIMAGING 08:58 | PROVIDERS: ATTEND Internal Medicine | DX: Z12.31 Encounter for screening mammogram for malignant neoplasm of breast (principal) | CPT/HCPCS: G0202 ==

== ENCOUNTER → 2017-01-31 | Outpatient (CLI) | payer OTHER | LOC: CIMAGING 09:56 | PROVIDERS: ATTEND Internal Medicine | DX: N39.0 Urinary tract infection, site not specified (principal) | CPT/HCPCS: 76770-PO ==

== ENCOUNTER 2017-06-02 09:34 | Day surgery (SDC) | payer OTHER ==
[2017-06-02] MEDS ORDERED: NS 1,000 ML IV ONE (09:39)
[2017-06-02] MEDS ORDERED: ASPIRIN EC 325 MG TAB PO ONE ×2 (09:39→10:12)
[2017-06-02] MEDS ORDERED: diphenhydrAMINE 25 MG CAP PO ONE ×2 (09:39→10:12)
[2017-06-02] MEDS ORDERED: FAMOTIDINE 20 MG TAB PO ONE (09:39)
[2017-06-02] MEDS ORDERED: DIAZEPAM 5 MG TAB PO ONE (09:39)
--- NOTE | 2017-06-02 10:05 | CPEKG ---
Heart Rate: 74 RR Interval: 811 P-R Interval: 172 QRSD Interval: 144 QT Interval: 408 QTC Interval: 453 P [place]: 42 QRS [place]: 33 T Wave [place]: -22 EKG Severity - ABNORMAL ECG - EKG Impression: SINUS RHYTHM EKG Impression: RIGHT BUNDLE BRANCH BLOCK Electronically Signed By: Raji Sidhu 02-Jun-2017 15:55:53
[2017-06-02] MEDS ORDERED: FAMOTIDINE 20 MG TAB ONE (10:12)
[2017-06-02] MEDS ORDERED: DIAZEPAM 5 MG TAB ONE (10:12)
[2017-06-02] MEDS ORDERED: fentaNYL 100 MCG/2 ML INJ ONE (10:19)
[2017-06-02] MEDS ORDERED: LIDOCAINE 1% 300 MG/30 ML SDV ONE (10:19)
[2017-06-02 10:20] LABS: % IMMATURE GRANULYOCYTES 0.4 % (0.0-1.1); ABSOLUTE IMMATURE GRANULOCYTES 0.03 10^3/uL (0.00-0.10); ADD DIFF? NO; ADD MORPH? NO; ADD SCAN? NO; ATYPICAL LYMPHOCYTE FLAG 0 (0-99); FRAGMENT RBC FLAG 0 (0-99); HEMATOCRIT 41.2 % (38.0-47.0); HEMOGLOBIN 14.6 g/dL (12.6-16.3); LEFT SHIFT FLG 0 (0-99); LIPEMIA HEMOLYSIS FLAG 90 (0-99); MEAN CELL HEMOGLOBIN 37.2 pg (27.9-34.1); MEAN CELL HEMOGLOBIN CONCENTR. 35.4 g/dL (32.4-36.7); MEAN CELL VOLUME 104.8 fL (81.5-99.8); PLATELET CLUMPS FLAG 0 (0-99); PLATELET COUNT 221 10^3/uL (150-400); RED BLOOD CELL COUNT 3.93 10^6/uL (4.18-5.33); RED CELL DISTRIBUTION WIDTH 11.5 % (11.5-15.2)
[2017-06-02] MEDS ORDERED: MIDAZOLAM 2 MG/2 ML VIAL ONE (10:20)
[2017-06-02] MEDS ORDERED: IOPAMIDOL (ISOVUE-370) 150 ML BTL IV ONE (10:20)
[2017-06-02 10:29] LABS: INR 1.02 (0.83-1.16); PROTIME(PATIENT) 13.3 SEC (12.0-15.0)
--- NOTE | 2017-06-02 10:37 | PDPROPOC ---
Sedation Plan of Care Sedation Plan of Care: vital signs stable, mental status noted, patient educated of risks, benefits, alternatives, patient can tolerate sedation ASA Classification: ASA 2 Planned drugs: fentanyl, midazolam Mallampati Score: Class 2 Mallampati Reference Image: Patient passed 3-3-2 rule?: Yes
--- NOTE | 2017-06-02 10:37 | PDHPUP ---
History & Physical Update H&P update statement: This history and physical update is based on an assessment of the patient which was completed after admission or registration (within 24 hours), but prior to the surgery/procedure. H&P update: H&P reviewed & patient examined, no change in patient's condition since H&P completed
[2017-06-02 10:38] LABS: ANION GAP 12 mEq/L (8-16); CALCIUM 9.3 mg/dL (8.5-10.4); CARBON DIOXIDE 25 mEq/l (22-31); CHLORIDE 105 mEq/L (97-110); CHOLESTEROL 206 mg/dL (140-220); CHOLESTEROL/HDL RATIO 4.29 RATIO (1.00-4.44); CREATININE 0.8 mg/dL (0.6-1.0); GLOMERULAR FILTRATION RATE > 60; GLUCOSE 110 mg/dL (70-100); HIGH DENSITY LIPOPROTEIN 48 mg/dL (40-85); LOW DENSITY LIPOPROTEIN 120 mg/dL (80-100); MAGNESIUM 2.1 mg/dL (1.6-2.3); NON-HIGH DENSITY LIPOPROTEIN 158 mg/dL (90-129); POTASSIUM 4.4 mEq/L (3.5-5.2); SODIUM 142 mEq/L (134-144); TRIGLYCERIDE 194 mg/dL (35-135); VERY LOW DENSITY LIPOPROTEINS 38 mg/dL (8-25)
[2017-06-02] MEDS ORDERED: ATROPINE SULFATE 1 MG/10 ML SYR IVP PRN (11:44)
[2017-06-02] MEDS ORDERED: NITROGLYCERIN 0.4 MG BTL SL PRN (11:44)
[2017-06-02] MEDS ORDERED: ONDANSETRON 4 MG/2 ML VIAL IVP PRN (11:44)
[2017-06-02] MEDS ORDERED: POLYETHYLENE GLYCOL 3350 17 GM PKT PO PRN (11:45)
[2017-06-02] MEDS ORDERED: IBUPROFEN 200 MG TAB PO PRN (11:45)
--- NOTE | 2017-06-02 17:27 | CPIP ---
[f rep st] INVASIVE CARDIAC PROCEDURE DATE OF PROCEDURE: 06/02/2017 PROCEDURE: 1. Coronary angiography. 2. Left ventricular end-diastolic pressure. INDICATION: 1. Known coronary artery disease. 2. Dyspnea on exertion, concerning for class 3 angina. ACCESS: The patient was prepped and draped in sterile fashion. 1% lidocaine was used to anesthetize the right inguinal region. A 6-Swazi introducer sheath was placed selectively into the right commo n femoral artery via modified Seldinger technique. CORONARY ANGIOGRAPHY: A 6-Swazi JL4 was advanced to left main coronary artery and images obtained. The left main coronary artery bifurcated into an LAD and circumflex coronary arteries. The left neela n coronary artery had a mid 30% stenosis present which may represent flexure. The left anterior desc ending coronary artery had a single discrete 40% stenosis in the midvessel. The left anterior descen ding coronary artery gave rise to 1 prominent diagonal branch as well as several smaller diagonal bra nches. The first diagonal artery had a proximal 20% stenosis present. The circumflex coronary arter y is a moderate to large-sized vessel. The circumflex coronary artery had mild luminal irregularitie s throughout. There was no stenosis greater than 10%. Six-Swazi JR4 was advanced to the right adin nary artery and images obtained. The right coronary artery is dominant. The right coronary artery h ad a single discrete 20% stenosis in the mid vessel. LEFT VENTRICULOGRAPHY: Left ventriculography was not performed in an effort to spare contrast. Henna ent did have a left ventricular diastolic pressure obtained to help in the diagnostic management of h er symptoms of dyspnea; her left ventricular end-diastolic pressure was 9 mmHg. COMPLICATIONS: None. CONCLUSIONS: 1. [place]-az-irbgjrlf coronary artery disease without flow limitation. 2. Normal left ventricular end-diastolic pressure. 3. Plan is for medical management. /[id number]/MODL
[2017-06-02] MEDS ORDERED: ALBUTEROL 60 PUFFS/8 GM MDI IH SCH (21:00)
[2017-06-02] MEDS ORDERED: METOPROLOL TARTRATE 25 MG TAB PO SCH (21:00)
[2017-06-02] MEDS ORDERED: BRIMONIDINE 0.15% 5 ML OPHT.BTL EACHEYE SCH (21:00)
[2017-06-02] MEDS ORDERED: TIMOLOL 0.5% 15 ML OPHT.BTL RTEYE SCH (21:00)
[2017-06-03] MEDS ORDERED: ASPIRIN 81 MG CHEWABLE TAB PO SCH (09:00)
[2017-06-03] MEDS ORDERED: CYANO/VITAMIN B12 1000 MCG TAB PO SCH (09:00)
[2017-06-03] MEDS ORDERED: NON-FORMULARY NEW DRUG (Omeprazole [Prilosec 20 Mg] 20 MG) PO SCH (09:00)
[2017-06-03] MEDS ORDERED: LEVOTHYROXINE 75 MCG TAB PO SCH (09:00)
[2017-06-03] MEDS ORDERED: TAMSULOSIN HCL 0.4 MG CAP PO SCH (09:00)
[2017-06-04] MEDS ORDERED: LEVOTHYROXINE 25 MCG TAB PO SCH (11:45)
== END 2017-06-02 16:35 | disposition home or self-care (01) ==
LOC: FCATH 09:34
PROVIDERS: ATTEND Internal Medicine Cardiovascular Disease
PROC: B2111ZZ Fluoroscopy of Multiple Coronary Arteries using Low Osmolar Contrast (ICD-10-PCS; principal; 2017-06-02)
PROC: B2151ZZ Fluoroscopy of Left Heart using Low Osmolar Contrast (ICD-10-PCS; principal; 2017-06-02)
PROC: 4A023N7 Measurement of Cardiac Sampling and Pressure, Left Heart, Percutaneous Approach (ICD-10-PCS; principal; 2017-06-02)
DX: I25.119 Atherosclerotic heart disease of native coronary artery with unspecified angina pectoris (principal); E78.5 Hyperlipidemia, unspecified; I10 Essential (primary) hypertension; E03.9 Hypothyroidism, unspecified
CPT/HCPCS: C1760; J1644; J2250; J3010; Q9967

== ENCOUNTER 2017-09-04 07:41 | Day surgery (SDC) | payer OTHER ==
[2017-09-04] MEDS ORDERED: LIDOCAINE 1% 300 MG/30 ML SDV ONE (08:34)
--- NOTE | 2017-09-04 09:08 | SUROPNOTE ---
[facility] Operative Report - Surgery PROCEDURE: LINQ IMPLANT INDICATION: FAILURE OF THE CUTANEOUS RHYTHM MONITOR DETAILS: After consent was signed, the patient was prepped and draped in usual sterile fashion. Lidocaine was used as a local anesthetic to the left sternal region (in the vicinity of the 2nd and 3rd intercostal spaces). A small incision was made with a #12 blade, and the provided blade was used for proper width and breath. The delivery rail was then used to inject the LINQ monitor SN: [id number] No complications were appreciated. Four liana were used to secure the incision. Patient tolerated this procedure very well. Outpatient follow up has been scheduled.
== END 2017-09-04 10:00 | disposition home or self-care (01) ==
LOC: FCATH 07:41
PROVIDERS: ATTEND Internal Medicine Cardiovascular Disease
PROC: 0JH60PZ Insertion of Cardiac Rhythm Related Device into Chest Subcutaneous Tissue and Fascia, Open Approach (ICD-10-PCS; principal; 2017-09-04)
DX: I49.9 Cardiac arrhythmia, unspecified (principal); I25.10 Atherosclerotic heart disease of native coronary artery without angina pectoris; E78.5 Hyperlipidemia, unspecified; K21.9 Gastro-esophageal reflux disease without esophagitis; I10 Essential (primary) hypertension
CPT/HCPCS: C1764

== ENCOUNTER → 2017-10-09 | Outpatient (CLI) | payer OTHER | LOC: CIMAGING 09:27 | PROVIDERS: ATTEND Internal Medicine | DX: M54.5 Low back pain (principal); M51.36 Other intervertebral disc degeneration, lumbar region; M53.86 Other specified dorsopathies, lumbar region; M41.9 Scoliosis, unspecified | CPT/HCPCS: 72100-PO; 73502-PO ==

== ENCOUNTER → 2017-10-16 | Outpatient (CLI) | payer OTHER | LOC: CIMAGING 11:34 | PROVIDERS: ATTEND Internal Medicine | DX: M24.80 Other specific joint derangements of unspecified joint, not elsewhere classified (principal) | CPT/HCPCS: 72192-PO ==

== ENCOUNTER → 2018-01-03 | Outpatient (CLI) | payer OTHER | LOC: CIMAGING 09:31 | PROVIDERS: ATTEND Internal Medicine | DX: Z12.31 Encounter for screening mammogram for malignant neoplasm of breast (principal) ==

== ENCOUNTER → 2018-03-09 | Outpatient (CLI) | payer OTHER | LOC: CIMAGING 11:10 | PROVIDERS: ATTEND Internal Medicine | DX: R06.02 Shortness of breath (principal); I51.7 Cardiomegaly; M19.012 Primary osteoarthritis, left shoulder; M85.612 Other cyst of bone, left shoulder | CPT/HCPCS: 71046-PO; 73030-PO ==

== ENCOUNTER 2018-03-17 20:06 | Emergency (ER) | payer OTHER ==
[2018-03-17 20:29] LABS: PLATELET COUNT 226 10^3/uL (150-400)
--- NOTE | 2018-03-17 20:30 | EDPHY ---
H & P Stated Complaint: weakness on and off for 1 month, nausea tonight Time Seen by Provider: 03/17/18 20:12 - Personal History Current Tetanus Diphtheria and Acellular Pertussis (TDAP): Yes - Medical/Surgical History Hx Asthma: No Hx Chronic Respiratory Disease: No Hx Diabetes: No Hx Cardiac Disease: No Hx Renal Disease: No Hx Cirrhosis: No Hx Alcoholism: No Hx HIV/AIDS: No Hx Splenectomy or Spleen Trauma: No Other PMH: thyroid , htn, implanted loan manager, cad, anemia,reflux, interstitial lung disease. macular degeneration , cataract surgery. hysterectomy, vertigo,spinal stenosis - Social History Smoking Status: Never smoked Constitutional: Initial Vital Signs Temperature (C) 36.5 C 03/17/18 20:18 Heart Rate 63 03/17/18 20:18 Respiratory Rate 18 03/17/18 20:18 Blood Pressure 133/56 H 03/17/18 20:18 O2 Sat (%) 93 03/17/18 20:18 O2 Delivery Mode Room Air O2 (L/minute) 2 Allergies/Adverse Reactions: erythromycin base [Erythromycin Base] Allergy (Verified 08/15/16 19:26) Penicillins Allergy (Verified 08/15/16 19:26) Home Medications: Medication Instructions Recorded Brimonidine 0.15% [Alphagan P 1 drops EACHEYE BID 08/15/16 0.15%] Levothyroxine [Synthroid 25 mcg 100 mcg PO BONILLA 08/15/16 (*)] Levothyroxine [Synthroid 75 mcg 75 mcg PO DAILY 08/15/16 (*)] Timolol 0.5% [TIMOPTIC 0.5% (*)] 1 drops RTEYE BID 08/15/16 Albuterol [Proventil Inhaler HFA 2 puffs IH BID 05/31/17 (*)] Aspirin [Aspirin 81mg (*)] 81 mg PO DAILY 05/31/17 Cyanocobalamin [Vitamin B12 (*)] 1,000 mcg PO DAILY 05/31/17 Herbals/Supplements -Info Only 1 ea PO DAILY 05/31/17 Ibuprofen [Motrin (*)] 200 mg PO DAILY PRN 05/31/17 Metoprolol Tartrate [Lopressor 25 12.5 mg PO HS 05/31/17 mg (*)] Omeprazole [Prilosec 20 mg] 20 mg PO DAILY 05/31/17 Polyethylene Glycol 3350 [Miralax 17 gm PO DAILY PRN 05/31/17 17 gm (*)] Tamsulosin HCl [Flomax 0.4 MG (*)] 0.4 mg PO DAILY 05/31/17 Cephalexin [Keflex (RX)] 500 mg PO TID #30 cap 03/17/18 Medical Decision Making ED Course/Re-evaluation: CHIEF COMPLAINT: Weakness HISTORY OF PRESENT ILLNESS: The patient is an 87 y/o female with a history of CAD, hypertension, and macular degeneration arriving via EMS complaining of weakness for 3 weeks. For the last several weeks she noticed that her blood pressure has been decreasing. She normally has a systolic of 110, but it has dropped to 100. Today while walking to a different building at her [facility] she became hot, lightheaded , and nauseated. Due to these symptoms she decided to call EMS and present to the emergency department. Denies chest pain, shortness of breath, abdominal pain , painful urination, bowel complaints, numbness, paresthesias, extremity swelling. REVIEW OF SYSTEMS: A 10 point review of systems was performed and is negative with the exception of the elements mentioned in the history of present illness. PHYSICAL EXAM: HR, BP, O2 Sat, RR. Temp noted General Appearance: Alert, well hydrated, appropriate, and non-toxic appearing. Head: Atraumatic without scalp tenderness or obvious injury Eyes: Pupils equal, round, reactive to light and accommodation, EOMI, no trauma , no injection. Ears: Clear bilaterally, no perforation, normal landmarks Nose: Atraumatic, no rhinorrhea, clear. Throat: There is no erythema or exudates, no lesions, normal tonsils, mucus membranes moist. Neck: Supple, 2+ carotid upstroke, nontender, no lymphadenopathy. Respiratory: No retractions, no distress, no wheezes, and no accessory muscle use. Lungs are clear to auscultation bilaterally. Cardiovascular: Regular rate and rhythm, no murmurs, rubs, or gallops. Bilateral carotid, radial, dorsalis pedis, and posterior tibial pulses intact. Good capillary refill all extremities. Gastrointestinal: Abdomen is soft, nontender, non-distended, no masses, no rebound, no guarding, no peritoneal signs. Musculoskeletal: Normal active ROM of all extremities, atraumatic. Neurological: Alert, appropriate, and interactive. The patient has normal DTRs and non-focal cranial nerves, motor, sensory, and cerebellar exam. Skin: No rashes, good turgor, no nodules on palpation. Past medical history: Hypertension, CAD, anemia, reflux, interstitial lung disease, macular degeneration, vertigo, spinal stenosis Past surgical history: Implanted loan manager, hysterectomy, cataract surgery Family history: Denies Social history: Family at bedside, resides at [place], retired DIAGNOSTICS/PROCEDURES/CRITICAL CARE TIME: EKG: The 12 lead EKG was interpreted by myself as sinus rhythm with a rate of 62 and RBBB. See hard copy and/or "tracemaster" electronic copy for interpretation. DIFFERENTIAL DIAGNOSIS: The differential diagnosis for the patient's weakness included but was not limited to UTI, peripheral and central causes of vertigo, orthostatic causes including dehydration, cardiogenic and neurogenic causes, and blood loss. MEDICAL DECISION MAKING: The patient is an 87 y/o female with a history of CAD, hypertension, and macular degeneration arriving via EMS presenting with weakness for 3 weeks. Today she had an acute episode of feeling faint, hot, and nauseated while walking. She has a normal physical exam. Labs and EKG ordered. 2024: I interpreted patient's EKG as sinus rhythm with a rate of 62 and RBBB. 2114: Patient has a negative troponin. 2120: Patient's UA reveals elevated white cells and leukocyte esterases. I have prescribed her Macrobid for the UTI; her first dose will be given prior to discharge. 2124: Reassessed patient and discussed laboratory and EKG findings. She is comfortable with plan to take Macrobid. I have offered her admission, which she has politely declined. Return precautions provided; patient is comfortable with this plan. - Data Points Laboratory Results: Laboratory Results 03/17/18 20:05 03/17/18 20:05 03/17/18 03/17/18 03/17/18 20:50 20:16 20:05 WBC RBC Hgb Hct MCV MCH MCHC RDW Plt Count MPV Neut % (Auto) Lymph % (Auto) [place] % (Auto) Eos % (Auto) Baso % (Auto) Nucleat RBC Rel Count Absolute Neuts (auto) Absolute Lymphs (auto) Absolute Monos (auto) Absolute Eos (auto) Absolute Basos (auto) Absolute Nucleated RBC Immature Gran % Immature Gran # Sodium 135 mEq/L mEq/L (135-145) Potassium 4.1 mEq/L mEq/L (3.3-5.0) Chloride 105 mEq/L mEq/L (97-110) Carbon Dioxide 22 mEq/l mEq/l (22-31) Anion Gap 8 mEq/L mEq/L (8-16) BUN 23 mg/dL mg/dL (7-23) Creatinine 0.8 mg/dL mg/dL (0.6-1.0) Estimated GFR > 60 Glucose 157 mg/dL H mg/dL (70-100) Calcium 9.2 mg/dL mg/dL (8.5-10.4) POC Troponin I 0.00 ng/mL ng/mL (0.00-0.08) Urine Color YELLOW Urine Appearance HAZY Urine pH 5.0 (5.0-7.5) Ur Specific [place] 1.012 (1.002-1.030) Urine Protein NEGATIVE (NEGATIVE) Urine Ketones NEGATIVE (NEGATIVE) Urine Blood NEGATIVE (NEGATIVE) Urine Nitrate NEGATIVE (NEGATIVE) Urine Bilirubin NEGATIVE (NEGATIVE) Urine Urobilinogen NEGATIVE EU EU (0.2-1.0) Ur Leukocyte Esterase TRACE H (NEGATIVE) Urine RBC 1-3 /hpf /hpf (0-3) Urine WBC 5-10 /hpf H /hpf (0-3) Ur Epithelial Cells TRACE /lpf /lpf (NONE-1+) Hyaline Casts 1-5 /lpf /lpf (0-1) Urine Glucose NEGATIVE (NEGATIVE) 03/17/18 20:05 WBC 9.68 10^3/uL H 10^3/uL (3.80-9.50) RBC 3.69 10^6/uL L 10^6/uL (4.18-5.33) Hgb 13.4 g/dL g/dL (12.6-16.3) Hct 39.1 % % (38.0-47.0) MCV 106.0 fL H fL (81.5-99.8) MCH 36.3 pg H pg (27.9-34.1) MCHC 34.3 g/dL g/dL (32.4-36.7) RDW 11.8 % % (11.5-15.2) Plt Count 226 10^3/uL 10^3/uL (150-400) MPV 9.6 fL fL (8.7-11.7) Neut % (Auto) 61.8 % % (39.3-74.2) Lymph % (Auto) 21.8 % % (15.0-45.0) [place] % (Auto) 8.8 % % (4.5-13.0) Eos % (Auto) 5.9 % % (0.6-7.6) Baso % (Auto) 0.9 % % (0.3-1.7) Nucleat RBC Rel Count 0.0 % % (0.0-0.2) Absolute Neuts (auto) 5.98 10^3/uL 10^3/uL (1.70-6.50) Absolute Lymphs (auto) 2.11 10^3/uL 10^3/uL (1.00-3.00) Absolute Monos (auto) 0.85 10^3/uL H 10^3/uL (0.30-0.80) Absolute Eos (auto) 0.57 10^3/uL H 10^3/uL (0.03-0.40) Absolute Basos (auto) 0.09 10^3/uL 10^3/uL (0.02-0.10) Absolute Nucleated RBC 0.00 10^3/uL 10^3/uL (0-0.01) Immature Gran % 0.8 % % (0.0-1.1) Immature Gran # 0.08 10^3/uL 10^3/uL (0.00-0.10) Sodium Potassium Chloride Carbon Dioxide Anion Gap BUN Creatinine Estimated GFR Glucose Calcium POC Troponin I Urine Color Urine Appearance Urine pH Ur Specific [place] Urine Protein Urine Ketones Urine Blood Urine Nitrate Urine Bilirubin Urine Urobilinogen Ur Leukocyte Esterase Urine RBC Urine WBC Ur Epithelial Cells Hyaline Casts Urine Glucose Point of Care Test Results: Chemistry 03/17/18 20:16 POC Troponin I 0.00 ng/mL ng/mL (0.00-0.08) Departure - Departure Disposition: Home, Routine, Self-Care Clinical Impression: Weakness UTI (urinary tract infection) Qualifiers: Urinary tract infection type: site unspecified Hematuria presence: without hematuria Qualified Code(s): N39.0 - Urinary tract infection, site not specified Condition: Good Instructions: Urinary Tract Infection in Women (ED), Weakness (ED) Additional Instructions: 1. Take Macrobid as prescribed. 2. Follow-up with your primary doctor within 72 hours. 3. Return to the Emergency Department for fever, worsening pain, flank pain or failure to improve within 72 hours. 4. It is possible that the bacteria causing your infection is resistant to the antibiotic we've placed you on. We have sent a urine for culture, if this comes back with a resistant bacteria, we will call you at the number you provided to us. Referrals: Cameron Mcarthur MD [Primary Care Provider] - As per Instructions Prescriptions: Cephalexin [Keflex (RX)] 500 mg PO TID #30 cap Report Scribed for: Walker Urena Report Scribed by: Lori Dukes Date of Report: 03/17/18 Time of Report: 20:31
--- NOTE | 2018-03-17 21:14 | CPEKG ---
Test Reason : OPEN Blood Pressure : / mmHG Vent. Rate : 062 BPM Atrial Rate : 062 BPM P-R Int : 190 ms QRS Dur : 166 ms QT Int : 436 ms P-R-T Axes : 034 -06 -21 degrees QTc Int : 443 ms Sinus rhythm Right bundle branch block Confirmed by Myra Tristan ([id number]) on 03/17/2018 9:14:22 PM Referred By: Confirmed By:Myra Tristan
[2018-03-17] MEDS ORDERED: NITROFURANTOIN MACROBID 100 MG CAP PO ONE (21:21)
[2018-03-17 21:46] VITALS: BP 125/67
== END 2018-03-17 21:46 | disposition home or self-care (01) ==
LOC: EDUNIT#
DX: N39.0 Urinary tract infection, site not specified (principal); I10 Essential (primary) hypertension; I25.10 Atherosclerotic heart disease of native coronary artery without angina pectoris; H35.30 Unspecified macular degeneration
CPT/HCPCS: 84484-PO

== ENCOUNTER 2018-04-19 14:50 | Emergency (ER) | payer OTHER ==
--- NOTE | 2018-04-19 15:16 | EDPHY ---
H & P Time Seen by Provider: 04/19/18 15:00 HPI/ROS: Chief complaint. Chest pain HPI. Patient is an 87-year-old female presents emergency department with an episode of chest pain 3 days ago. She had a fairly normal day and was feeling well and then while she was getting ready for bed 3 days ago she had sudden onset of anterior chest discomfort. She describes it as across the precordium and she says from right to left. There was no radiation of her symptoms. She describes it as pressure. Symptoms lasted 20-25 minutes and have not recurred over the past 3 days even though she has had normal activity. She had no shortness of breath. Her symptoms were not worse with breathing, movement, exertion. While she says no similar symptoms since she has noted some generalized weakness. She had similar chest discomfort 1 month ago that lasted about 40 min. She also complains of swelling to both ankles for the last 1-2 years. No calf pain. No cough or fever. No abdominal pain. Patient made an appointment with Cardiology today who saw her in the office. They noted crackles in her lungs. They performed an EKG which was not sent with the patient but was apparently nonacute for them. She was then referred to the emergency department for laboratory evaluation and workup ROS 10 systems were reviewed and negative with the exception of the elements mentioned in the history of present illness Past Medical/Surgical History: Past medical history is significant for GERD, IBS, hypertension, dyslipidemia, hypothyroid, interstitial lung disease. Heart catheterization showed lesions in the left main at 30%, left anterior descending at 40%, circumflex at 10%, right coronary artery at 20% Social History: , nonsmoker, no alcohol Smoking Status: Never smoked Physical Exam: General Appearance: Alert well-developed female no distress vital signs are stable Eyes: Pupils equal and round no pallor or injection. ENT, Mouth: Mucous membranes are moist. Respiratory: There are no retractions. She has diffuse inspiratory expiratory crackling. Cardiovascular: Regular rate and rhythm. Gastrointestinal: Abdomen is soft and nontender, no masses, bowel sounds normal. Neurological: Awake and alert, sensory and motor exams grossly normal. Skin: Warm and dry, no rashes. Musculoskeletal: Neck is supple nontender. Extremities symmetrical, full range of motion. Trace to 1+ edema about her ankles bilaterally Psychiatric: Patient is oriented X 3, there is no agitation. Constitutional: Initial Vital Signs Temperature (C) 36.6 C 04/19/18 15:13 Heart Rate 81 04/19/18 15:13 Respiratory Rate 20 04/19/18 15:13 Blood Pressure 134/68 H 04/19/18 15:13 O2 Sat (%) 93 04/19/18 15:13 O2 Delivery Mode Room Air Allergies/Adverse Reactions: erythromycin base [Erythromycin Base] Allergy (Verified 04/19/18 15:10) Penicillins Allergy (Verified 04/19/18 15:10) Home Medications: Medication Instructions Recorded Brimonidine 0.15% [Alphagan P 1 drops EACHEYE BID 08/15/16 0.15%] Levothyroxine [Synthroid 75 mcg 75 mcg PO DAILY 08/15/16 (*)] Timolol 0.5% [TIMOPTIC 0.5% (*)] 1 drops RTEYE BID 08/15/16 Albuterol [Proventil Inhaler HFA 2 puffs IH BID 05/31/17 (*)] Aspirin [Aspirin 81mg (*)] 81 mg PO DAILY 05/31/17 Metoprolol Tartrate [Lopressor 25 12.5 mg PO HS 05/31/17 mg (*)] Omeprazole [Prilosec 20 mg] 20 mg PO DAILY 05/31/17 Tamsulosin HCl [Flomax 0.4 MG (*)] 0.4 mg PO DAILY 05/31/17 Medical Decision Making - Diagnostics EKG Interpretation: EKG interpreted by me shows normal sinus rhythm interval and axis. QRS shows right bundle branch block. There is no significant ST elevation or depression. There is no arrhythmia. The rate is 75. No significant change from previous EKG November of 2011 Imaging Results: Imaging Impressions Chest X-Ray 04/19/18 15:46 Impression: Interstitial fibrosis with left lung base atelectasis or scarring. Chest x-ray interpreted by me shows likely interstitial fibrosis some possible mild CHF. No significant change from previous chest x-ray 2 months prior Procedures: IV normal saline, monitor ED Course/Re-evaluation: On re-evaluation patient is stable. She has no chest discomfort. She and I discussed EKG, chest x-ray, laboratory evaluation. We discussed treatment plan including criteria for return importance of follow-up and further evaluation. She expresses understanding and agreement I consulted and discussed the case Dr. Kim who will see the patient in follow -up Differential Diagnosis: I considered acute coronary syndrome. Though the chest discomfort was 3 days ago the troponin should remain positive if there was acute NC or coronary syndrome. Her troponin is normal. I considered congestive heart failure however her BNP is within normal range. I think the crackles in her chest are sales promotion representative of interstitial fibrosis. There is no evidence for pneumonia. - Data Points Laboratory Results: Laboratory Results 04/19/18 15:43 04/19/18 04/19/18 04/19/18 17:03 15:43 15:43 WBC RBC Hgb Hct MCV MCH MCHC RDW Plt Count MPV Neut % (Auto) Lymph % (Auto) [place] % (Auto) Eos % (Auto) Baso % (Auto) Nucleat RBC Rel Count Absolute Neuts (auto) Absolute Lymphs (auto) Absolute Monos (auto) Absolute Eos (auto) Absolute Basos (auto) Absolute Nucleated RBC Immature Gran % Immature Gran # POC Troponin I 0.00 ng/mL ng/mL (0.00-0.08) NT-Pro-B Natriuret Pep 294 pg/mL pg/mL (0-450) Urine Color YELLOW Urine Appearance CLEAR Urine pH 6.0 (5.0-7.5) Ur Specific [place] 1.010 (1.002-1.030) Urine Protein NEGATIVE (NEGATIVE) Urine Ketones NEGATIVE (NEGATIVE) Urine Blood NEGATIVE (NEGATIVE) Urine Nitrate NEGATIVE (NEGATIVE) Urine Bilirubin NEGATIVE (NEGATIVE) Urine Urobilinogen NEGATIVE EU EU (0.2-1.0) Ur Leukocyte Esterase NEGATIVE (NEGATIVE) Urine RBC 3-5 /hpf H /hpf (0-3) Urine WBC 1-3 /hpf /hpf (0-3) Ur Epithelial Cells TRACE /lpf /lpf (NONE-1+) Urine Glucose NEGATIVE (NEGATIVE) 04/19/18 15:43 WBC 8.19 10^3/uL 10^3/uL (3.80-9.50) RBC 3.96 10^6/uL L 10^6/uL (4.18-5.33) Hgb 14.1 g/dL g/dL (12.6-16.3) Hct 41.8 % % (38.0-47.0) MCV 105.6 fL H fL (81.5-99.8) MCH 35.6 pg H pg (27.9-34.1) MCHC 33.7 g/dL g/dL (32.4-36.7) RDW 11.9 % % (11.5-15.2) Plt Count 225 10^3/uL 10^3/uL (150-400) MPV 10.0 fL fL (8.7-11.7) Neut % (Auto) 58.9 % % (39.3-74.2) Lymph % (Auto) 20.6 % % (15.0-45.0) [place] % (Auto) 11.2 % % (4.5-13.0) Eos % (Auto) 7.8 % H % (0.6-7.6) Baso % (Auto) 0.9 % % (0.3-1.7) Nucleat RBC Rel Count 0.0 % % (0.0-0.2) Absolute Neuts (auto) 4.82 10^3/uL 10^3/uL (1.70-6.50) Absolute Lymphs (auto) 1.69 10^3/uL 10^3/uL (1.00-3.00) Absolute Monos (auto) 0.92 10^3/uL H 10^3/uL (0.30-0.80) Absolute Eos (auto) 0.64 10^3/uL H 10^3/uL (0.03-0.40) Absolute Basos (auto) 0.07 10^3/uL 10^3/uL (0.02-0.10) Absolute Nucleated RBC 0.00 10^3/uL 10^3/uL (0-0.01) Immature Gran % 0.6 % % (0.0-1.1) Immature Gran # 0.05 10^3/uL 10^3/uL (0.00-0.10) POC Troponin I NT-Pro-B Natriuret Pep Urine Color Urine Appearance Urine pH Ur Specific [place] Urine Protein Urine Ketones Urine Blood Urine Nitrate Urine Bilirubin Urine Urobilinogen Ur Leukocyte Esterase Urine RBC Urine WBC Ur Epithelial Cells Urine Glucose Point of Care Test Results: Chemistry 04/19/18 17:03 POC Troponin I 0.00 ng/mL ng/mL (0.00-0.08) Comprehensive Metabolic Panel Chloride 102 Creatinine 1.1 Basic Metabolic Panel BMP Collection Time 15:50 Sodium 142 Potassium 3.5 Chloride 102 TCO2 26 Glucose 103 BUN 13 Creatinine 1.1 Calcium 9.2 Urine Dip Collection Date 04/19/18 Collection Time 15:30 Specific [place] (1.002-1.030) 1.015 PH (5.0-7.5) 6.0 Leukocytes (Negative) 1+ Nitrites (Negative) Negative Protein (Negative) Negative Glucose (Negative) Negative Ketones (Negative) Negative Urobilnogen (0.2-1.0 EU) 0.2 Bilirubin (Negative) Negative Blood (Negative) 1+ Departure - Departure Disposition: Home, Routine, Self-Care Clinical Impression: Chest pain Qualifiers: Chest pain type: unspecified Qualified Code(s): R07.9 - Chest pain, unspecified Condition: Good Instructions: Chest Pain (ED) Additional Instructions: You workup today is normal without evidence of heart attack or congestive heart failure. Return for further episodes of chest discomfort or trouble breathing. Follow-up and further evaluation by Dr. Kim with Cardiology Referrals: Cameron Mcarthur MD [Primary Care Provider] - As per Instructions Yonas Kim MD [Medical Doctor] - 2-3 days, call for appt.
[2018-04-19 17:13] LABS: PLATELET COUNT 225 10^3/uL (150-400)
[2018-04-19 18:17] VITALS: BP 145/82
--- NOTE | 2018-04-19 20:33 | CPEKG ---
Test Reason : OPEN Blood Pressure : / mmHG Vent. Rate : 075 BPM Atrial Rate : 074 BPM P-R Int : 173 ms QRS Dur : 158 ms QT Int : 411 ms P-R-T Axes : 043 -16 -17 degrees QTc Int : 460 ms Sinus rhythm Right bundle branch block Confirmed by Rene Gomez ([id number]) on 04/19/2018 8:32:37 PM Referred By: Confirmed By:Rene Gomez
== END 2018-04-19 18:32 | disposition home or self-care (01) ==
LOC: CED 14:50
DX: R07.9 Chest pain, unspecified (principal); J84.10 Pulmonary fibrosis, unspecified
CPT/HCPCS: 71046-PO; 80048-PO; 84484-PO